=== PATIENT | female | born 1990 | race Caucasian/White ===

== ENCOUNTER 2018-11-27 11:01 | Inpatient (IN) | payer BC, OTHER ==
[~2018-11-27] VITALS: Ht 172.7 cm; Wt 92.0 kg
[2018-11-30] MEDS: D5%-LACTATED RINGERS 1,000 ML IV SCH ×2 (15:20→23:20)
[2018-11-30] MEDS ORDERED: OXYTOCIN 30U/ 0.9% NaCL 500ML 500 ML IV PRN (15:20)
[2018-11-30] MEDS ORDERED: FENTANYL/BUPIV./NS/PF 250 ML EPIDCONT SCH (15:20)
[2018-11-30] MEDS ORDERED: OXYTOCIN 30U/ 0.9% NaCL 500ML 500 ML IV ONE (15:20)
[2018-11-30] MEDS ORDERED: METOCLOPRAMIDE 5 MG/ML, 2ML IVPush PRN (15:30)
[2018-11-30] MEDS ORDERED: CALCIUM CARBONATE 500 MG TAB.CHEW PO PRN (15:30)
[2018-11-30] MEDS ORDERED: hydrALAzine 20 MG/ML, 1ML IVPush ONE (15:30)
[2018-11-30] MEDS ORDERED: LABETALOL 5MG/ML, 20ML IVPush PRN ×4 (15:30→19:30)
[2018-11-30] MEDS ORDERED: ALUMINUM/MAG/SIMETHICONE 30 ML UDC PO PRN (15:30)
[2018-11-30] MEDS ORDERED: SODIUM CITRATE/CITRIC ACID 30 ML UDC PO PRN (15:30)
[2018-11-30] MEDS ORDERED: FENTANYL PF 100 MCG/2ML IVPush PRN (15:30)
[2018-11-30] MEDS ORDERED: ONDANSETRON 2MG/ML, 2ML IVPush PRN (15:30)
[2018-11-30] MEDS ORDERED: MISOPROSTOL 200 MCG TABLET ONE (15:47)
[2018-11-30] MEDS ORDERED: OXYTOCIN 30U/ 0.9% NaCL 500ML 500 ML ONE (15:47)
[2018-11-30] MEDS ORDERED: NEWBORN KIT ONE (15:47)
[2018-11-30] MEDS ORDERED: LIDOCAINE 1%, 20ML ONE (15:47)
[2018-11-30 15:50] LABS: BASOPHILS # (AUTO) 0.02 x10^3/uL (0-0.1); BASOPHILS % (AUTO) 0 % (0-1); EOSINOPHILS # (AUTO) 0.04 x10^3/uL (0-0.4); EOSINOPHILS % (AUTO) 1 % (1-7); LYMPHOCYTES # (AUTO) 1.15 x10^3/uL (1-3.4); LYMPHOCYTES % (AUTO) 13 % (22-44); MD NO; MEAN CORPUSCULAR HEMOGLOBIN 30.4 pg (27.0-34.8); MEAN CORPUSCULAR HGB CONC 33.3 g/dL (32.4-35.8); MEAN CORPUSCULAR VOLUME 91.2 fL (80-100); MEAN PLATELET VOLUME 8.8 fL (7.4-10.4); MONOCYTES # (AUTO) 0.58 x10^3/uL (0.2-0.8); MONOCYTES % (AUTO) 7 % (2-9); NEUTROPHILS # (AUTO) 6.86 x10^3/uL (1.8-6.8); NEUTROPHILS % (AUTO) 79 % (42-75); PLATELET COUNT 181 x10^3/uL (130-400); RED BLOOD COUNT 4.08 x10^6/uL (3.82-5.3); RED CELL DISTRIBUTION WIDTH 13.6 % (9.6-15.2)
[2018-11-30 15:55] LABS: ALANINE AMINOTRANSFERASE 16 U/L (12-78); ALBUMIN 2.5 g/dL (3.4-5.0); ANION GAP 8 mmol/L (5-15); CALCIUM 8.7 mg/dL (8.5-10.1); CHLORIDE 107 mmol/L (98-107)
[2018-11-30 15:58] LABS: ALKALINE PHOSPHATASE 131 U/L (45-117); BILIRUBIN, DIRECT < 0.1 mg/dL (0.1-0.2); BILIRUBIN,TOTAL 0.1 mg/dL (0.2-1.0); CREATININE 0.52 mg/dL (0.55-1.02); TOTAL PROTEIN 6.1 g/dL (6.4-8.2)
[2018-11-30] MEDS ORDERED: MISOPROSTOL 25 MCG TABLET ONE (16:10)
[2018-11-30 16:22] LABS: MICROSCOPIC AUTO
[2018-11-30] MEDS: MISOPROSTOL 25 MCG TABLET VG PRN (16:24)
[2018-11-30] MEDS ORDERED: SODIUM CITRATE/CITRIC ACID 15 ML UDC PO PRN (16:30)
[2018-11-30 16:31] LABS: CREATININE,URINE RANDOM 54.9 mg/dL
[2018-11-30] MEDS ORDERED: MAGNESIUM SULF. PMX 20GM/500ML 500 ML IV SCH (17:14)
[2018-11-30] MEDS ORDERED: MAGNESIUM SULF. PMX 20GM/500ML 500 ML IV ONE ×2 (17:19→23:35)
[2018-11-30] MEDS ORDERED: FENTANYL PF 500 MCG, BUPIVACAINE/PF 0.5%, 30ML 62.5 ML in SODIUM CHLORIDE 0.9% 177.5 ML EPIDCONT SCH (17:30)
[2018-11-30] MEDS ORDERED: CALCIUM GLUCONATE 4.6 MEQ/10 ML IV PRN (17:30)
[2018-11-30] MEDS ORDERED: MAGNESIUM SULFATE PMX 4GM/100M 100 ML IVPB ONE (17:30)
[2018-11-30] MEDS: LACTATED RINGERS 1,000 ML IV SCH ×2 (17:35→23:20)
[2018-11-30] MEDS ORDERED: CEFAZOLIN PMX 1GM/50ML 50 ML IV SCH (18:30)
[2018-11-30] MEDS ORDERED: CEFAZOLIN PMX 1GM/50ML 0 ML ONE (18:36)
[2018-11-30] MEDS ORDERED: CEFAZOLIN 2,000 MG in SODIUM CHLORIDE 0.9% 50 ML IV ONE (19:00)
[2018-11-30 22:10] VITALS: BP 155/97
[2018-11-30] MEDS: MAGNESIUM SULF. PMX 20GM/500ML 500 ML IV SCH (23:44)
[2018-12-01] MEDS ORDERED: MISOPROSTOL 25 MCG TABLET ONE (00:02)
[2018-12-01] MEDS: MISOPROSTOL 25 MCG TABLET VG PRN (00:05)
[2018-12-01 03:24] VITALS: BP 132/86
[2018-12-01] MEDS: LACTATED RINGERS 1,000 ML IV SCH ×2 (04:11→13:10)
[2018-12-01] MEDS ORDERED: OXYTOCIN 30U/ 0.9% NaCL 500ML 500 ML IV PRN (06:44)
[2018-12-01] MEDS ORDERED: OXYTOCIN 30U/ 0.9% NaCL 500ML 500 ML ONE (06:47)
[2018-12-01] MEDS ORDERED: ACETAMINOPHEN 325 MG TABLET ONE (07:03)
[2018-12-01] MEDS: ACETAMINOPHEN 325 MG TABLET PO PRN (07:11)
[2018-12-01] MEDS ORDERED: MAGNESIUM SULF. PMX 20GM/500ML 500 ML IV ONE ×3 (07:12→23:16)
[2018-12-01] MEDS: MAGNESIUM SULF. PMX 20GM/500ML 500 ML IV SCH ×2 (07:15→15:57)
[2018-12-01] MEDS ORDERED: FENTANYL PF 100 MCG/2ML ONE (13:25)
[2018-12-01] MEDS ORDERED: BUPIVACAINE 0.25% ONE ×2 (13:26→13:35)
[2018-12-01] MEDS ORDERED: LIDOCAINE/PF 1.5%-EPI 1:200K, 30ML ONE (13:35)
[2018-12-01] MEDS ORDERED: LACTATED RINGERS 1,000 ML IV SCH (14:11)
[2018-12-01] MEDS ORDERED: FENTANYL/BUPIV./NS/PF 250 ML EPIDCONT SCH (14:11)
[2018-12-01] MEDS ORDERED: ONDANSETRON 2MG/ML, 2ML IVPush PRN (14:30)
[2018-12-01] MEDS ORDERED: LACTATED RINGERS 1,000 ML IVBOLUS PRN (14:30)
[2018-12-01] MEDS ORDERED: EPHEDRINE 50 MG/ML, 1ML IVPush PRN (14:30)
[2018-12-01] MEDS: D5%-LACTATED RINGERS 1,000 ML IV SCH (16:40)
[2018-12-01] MEDS ORDERED: ONDANSETRON 2MG/ML, 2ML ONE (19:22)
[2018-12-01 19:38] LABS: CREATININE,URINE RANDOM 33.2 mg/dL
[2018-12-01 19:57] LABS: BASOPHILS # (AUTO) 0.01 x10^3/uL (0-0.1); BASOPHILS % (AUTO) 0 % (0-1); EOSINOPHILS # (AUTO) 0.01 x10^3/uL (0-0.4); EOSINOPHILS % (AUTO) 0 % (1-7); LYMPHOCYTES # (AUTO) 1.16 x10^3/uL (1-3.4); LYMPHOCYTES % (AUTO) 8 % (22-44); MD NO; MEAN CORPUSCULAR HEMOGLOBIN 31.1 pg (27.0-34.8); MEAN CORPUSCULAR HGB CONC 34.4 g/dL (32.4-35.8); MEAN CORPUSCULAR VOLUME 90.6 fL (80-100); MONOCYTES # (AUTO) 0.77 x10^3/uL (0.2-0.8); MONOCYTES % (AUTO) 5 % (2-9); NEUTROPHILS # (AUTO) 13.22 x10^3/uL (1.8-6.8); NEUTROPHILS % (AUTO) 87 % (42-75); PLATELET COUNT 194 x10^3/uL (130-400); RED BLOOD COUNT 4.31 x10^6/uL (3.82-5.3); RED CELL DISTRIBUTION WIDTH 13.9 % (9.6-15.2)
[2018-12-01 20:04] LABS: ALANINE AMINOTRANSFERASE 17 U/L (12-78); ALBUMIN 2.4 g/dL (3.4-5.0); ANION GAP 11 mmol/L (5-15); CALCIUM 7.3 mg/dL (8.5-10.1); CHLORIDE 103 mmol/L (98-107); CREATININE 0.61 mg/dL (0.55-1.02)
[2018-12-01 20:06] LABS: ALKALINE PHOSPHATASE 148 U/L (45-117); BILIRUBIN, DIRECT < 0.1 mg/dL (0.1-0.2); BILIRUBIN,TOTAL 0.2 mg/dL (0.2-1.0); TOTAL PROTEIN 6.2 g/dL (6.4-8.2)
[2018-12-01] MEDS ORDERED: SODIUM CITRATE/CITRIC ACID 15 ML UDC ONE (20:35)
[2018-12-01] MEDS ORDERED: METOCLOPRAMIDE 5 MG/ML, 2ML ONE (20:36)
[2018-12-01] MEDS ORDERED: OXYTOCIN 30U/ 0.9% NaCL 500ML 500 ML IV SCH (23:09)
[2018-12-01] MEDS ORDERED: HYDROcodone/APAP 5/325 TABLET PO PRN ×2 (23:30)
[2018-12-01] MEDS ORDERED: ACETAMINOPHEN 325 MG TABLET PO PRN ×2 (23:30)
[2018-12-01] MEDS ORDERED: RHOGAM FROM BLOOD BANK 1 NOTE EA IM/IV ONE (23:30)
[2018-12-01] MEDS ORDERED: MEASLES,MUMPS&RUBELLA VACC/PF 0.5 ML SQ PRN (23:30)
[2018-12-01] MEDS ORDERED: IBUPROFEN 600 MG TABLET PO PRN (23:30)
[2018-12-01] MEDS ORDERED: MISOPROSTOL 200 MCG TABLET PR PRN (23:30)
[2018-12-01] MEDS ORDERED: MAGNESIUM HYDROXIDE 8%, 30ML UDC PO PRN (23:30)
[2018-12-02 07:20] VITALS: BP 134/82
[2018-12-02] MEDS: PRENATAL VIT/IRON/FA 1 EACH TABLET PO SCH (09:00)
[2018-12-02] MEDS ORDERED: MAGNESIUM SULFATE PMX 4GM/100M 100 ML ONE (09:07)
[2018-12-02] MEDS ORDERED: MAGNESIUM SULF. PMX 20GM/500ML 500 ML IV ONE (09:20)
[2018-12-02] MEDS: MAGNESIUM SULF. PMX 20GM/500ML 500 ML IV SCH (09:25)
[2018-12-02 09:52] LABS: MEAN CORPUSCULAR HEMOGLOBIN 30.6 pg (27.0-34.8); MEAN CORPUSCULAR HGB CONC 33.4 g/dL (32.4-35.8); MEAN CORPUSCULAR VOLUME 91.8 fL (80-100); MEAN PLATELET VOLUME 8.6 fL (7.4-10.4); PLATELET COUNT 186 x10^3/uL (130-400); RED CELL DISTRIBUTION WIDTH 13.6 % (9.6-15.2)
[2018-12-02 10:11] LABS: BASOPHILS # (AUTO) 0.01 x10^3/uL (0-0.1); BASOPHILS % (AUTO) 0 % (0-1); EOSINOPHILS # (AUTO) 0.01 x10^3/uL (0-0.4); EOSINOPHILS % (AUTO) 0 % (1-7); LYMPHOCYTES # (AUTO) 1.08 x10^3/uL (1-3.4); LYMPHOCYTES % (AUTO) 8 % (22-44); MD SCAN; MONOCYTES # (AUTO) 0.39 x10^3/uL (0.2-0.8); MONOCYTES % (AUTO) 3 % (2-9); NEUTROPHILS # (AUTO) 12.26 x10^3/uL (1.8-6.8); NEUTROPHILS % (AUTO) 89 % (42-75)
[2018-12-02] MEDS ORDERED: ACETAMINOPHEN 325 MG TABLET ONE (11:44)
[2018-12-02] MEDS: ACETAMINOPHEN 325 MG TABLET PO PRN (11:46)
[2018-12-02 17:55] VITALS: BP 136/66
[2018-12-02 20:55] VITALS: BP 138/89
[2018-12-02] MEDS: DOCUSATE 100 MG CAPSULE PO PRN (23:45)
[2018-12-03 00:30] VITALS: BP 132/88
[2018-12-03 04:00] VITALS: BP 125/83
[2018-12-03 07:00] VITALS: BP 133/91
[2018-12-03] MEDS: DOCUSATE 100 MG CAPSULE PO PRN (08:19)
[2018-12-03] MEDS: PRENATAL VIT/IRON/FA 1 EACH TABLET PO SCH (08:19)
[2018-12-03] MEDS ORDERED: HYDR-3240 PO (09:05)
[2018-12-03] MEDS ORDERED: IBUP-1222 PO (09:06)
== END 2018-12-03 13:00 | disposition home or self-care (01) | DRG 807 ==
LOC: LDIP 11-30 15:03 → 2NE 12-02 01:00 → 2NW 12-02 17:13
PROVIDERS: ADMIT Obstetrics & Gynecology; ATTEND Obstetrics & Gynecology
PROC: 10E0XZZ Delivery of Products of Conception, External Approach (ICD-10-PCS; principal; 2018-12-01)
PROC: 0KQM0ZZ Repair Perineum Muscle, Open Approach (ICD-10-PCS; 2018-12-01)
PROC: 3E0R3BZ Introduction of Anesthetic Agent into Spinal Canal, Percutaneous Approach (ICD-10-PCS; 2018-12-01)
PROC: 00HU33Z Insertion of Infusion Device into Spinal Canal, Percutaneous Approach (ICD-10-PCS; 2018-12-01)
PROC: 3E033VJ Introduction of Other Hormone into Peripheral Vein, Percutaneous Approach (ICD-10-PCS; 2018-12-01)
PROC: 10907ZC Drainage of Amniotic Fluid, Therapeutic from Products of Conception, Via Natural or Artificial Opening (ICD-10-PCS; 2018-12-01)
DX: O14.14 Severe pre-eclampsia complicating childbirth (principal); Z37.0 Single live birth; O13.4 Gestational [pregnancy-induced] hypertension without significant proteinuria, complicating childbirth; Z3A.40 40 weeks gestation of pregnancy; O70.1 Second degree perineal laceration during delivery
CPT/HCPCS: 36415; J7121; 80053; 81001; 82248; 82570; 83735; 84156; 84550; 85025; 86850; 86900; G0378; J0690; J3490; J0360; J2590; J3010; J3475; J7120